=== PATIENT | female | born 1990 | race Hispanic/Latino ===

== ENCOUNTER 2021-09-10 11:48 | Inpatient (IN) | payer MEDICAID, OTHER ==
[2021-09-10 12:24] LABS: Fetal Membranes Rupture RUPTURE DETECTED (No Rupture)
[2021-09-10 12:37] VITALS: BMI 24.7
[2021-09-10] MEDS ORDERED: Ondansetron PF 4 MG/2 ML Vial IVP PRN ×2 (13:26→23:23)
[2021-09-10] MEDS ORDERED: hydrALAZINE 20 MG/ML VIAL SLOW IVP PRN ×2 (13:26→23:23)
[2021-09-10] MEDS ORDERED: Butorphanol Tartrate 1 MG/ML VIAL SLOW IVP PRN (13:26)
[2021-09-10] MEDS ORDERED: Methylergonovine 0.2 MG/ML VIAL IM PRN ×2 (13:26→23:23)
[2021-09-10] MEDS ORDERED: Misoprostol 200 MCG TAB PR PRN (13:26)
[2021-09-10] MEDS ORDERED: Ibuprofen 800 MG TAB PO PRN (13:26)
[2021-09-10] MEDS ORDERED: Carboprost 250 MCG/ML AMP IM PRN (13:26)
[2021-09-10] MEDS ORDERED: HYDROcodone/Acetaminophen 5/325 mg Tablet PO PRN ×4 (13:26→23:23)
[2021-09-10] MEDS ORDERED: Diphenoxylate HCl/Atropine Tablet PO PRN (13:26)
[2021-09-10] MEDS ORDERED: Acetaminophen 500 MG TAB PO PRN (13:26)
[2021-09-10] MEDS ORDERED: Lidocaine 1% (PF) 30 ML VIAL SC PRN (13:26)
[2021-09-10] MEDS ORDERED: Promethazine HCl 25 MG/ML VIAL IM PRN (13:26)
[2021-09-10] MEDS ORDERED: Lactated Ringer's 1,000 ML IV SCH (13:30)
[2021-09-10] MEDS ORDERED: NS w/ Oxytocin 30 units 500 ML IV SCH (13:30)
[2021-09-10 13:55] LABS: Hemoglobin 13.5 g/dL (12.0-15.5); Mean Corpuscular HGB CONC 33.7 g/dL (32.0-36.0); Mean Corpuscular Hemoglobin 31.9 pg (27.0-33.0); Mean Corpuscular Volume 94.8 fl (81.6-98.3); Mean Platelet Volume 12.4 fl (7.4-10.4); Platelet Count 107 10x3/uL (150-450); RBC Distribution Width 13.2 % (11.5-14.5); Red Blood Cell (RBC) Count 4.23 10x6/uL (3.90-5.03); White Blood Cell (WBC) Count 9.8 10x3/uL (3.5-10.5)
[2021-09-10 14:34] LABS: Hep B Surf Ag Non-Reactive S/CO (NonReactive); Syphilis Antibody Nonreactive (Nonreactive); Syphilis Antibody Index 0.04 S/CO (<1.00 Non-Reactive)
[2021-09-10 14:53] LABS: HBSAg Index 0.21 S/CO (0-0.99)
[2021-09-10] MEDS: NS w/ Oxytocin 30 units 500 ML IV SCH ×2 (21:39→22:05)
[2021-09-10] MEDS ORDERED: Bisacodyl 10 MG SUPP PR PRN (23:23)
[2021-09-10] MEDS ORDERED: Misoprostol 200 MCG TAB VAG PRN (23:23)
[2021-09-10] MEDS ORDERED: Boostrix 0.5 ML (Tdap) VIAL IM ONE (23:23)
[2021-09-10] MEDS ORDERED: Benzocaine-Menthol 82.5 ML CAN TOP PRN (23:23)
[2021-09-10] MEDS ORDERED: NS w/ Oxytocin 30 units 500 ML IV PRN (23:23)
[2021-09-10] MEDS ORDERED: Milk Of Magnesia 30 ML UDCUP PO PRN (23:23)
[2021-09-11 04:32] LABS: #Monocytes 0.8 10x3/uL (0.0-1.1); #Neutrophils 12.2 10x3/uL (1.5-8.4); %Basophils 0.1 % (0.0-2.0); %Eosinophils 0.1 % (0.0-6.0); %Lymphocytes 8.4 % (18.0-47.0); %Monocytes 5.4 % (0.0-10.0); %Neutrophils 85.6 % (40.0-75.0); Hemoglobin 12.5 g/dL (12.0-15.5); Mean Corpuscular HGB CONC 34.2 g/dL (32.0-36.0); Mean Corpuscular Hemoglobin 31.9 pg (27.0-33.0); Mean Corpuscular Volume 93.4 fl (81.6-98.3); Mean Platelet Volume 12.3 fl (7.4-10.4); Platelet Count 92 10x3/uL (150-450); RBC Distribution Width 13.2 % (11.5-14.5); Red Blood Cell (RBC) Count 3.92 10x6/uL (3.90-5.03); White Blood Cell (WBC) Count 14.2 10x3/uL (3.5-10.5)
[2021-09-11] MEDS: Ibuprofen 800 MG TAB PO SCH ×2 (05:40→14:52)
[2021-09-11] MEDS: Docusate Calcium (SURFAK) 240 MG CAP PO SCH ×2 (08:46→21:17)
[2021-09-11] MEDS: Ferrous Sulfate 325 MG TAB PO SCH ×2 (08:47→18:34)
[2021-09-11] MEDS ORDERED: Lanolin Ointment 7 GM TUBE TOP PRN (09:03)
[2021-09-12] MEDS: Ibuprofen 800 MG TAB PO SCH ×2 (03:28→11:27)
[2021-09-12 04:32] LABS: Hemoglobin 10.9 g/dL (12.0-15.5); Mean Corpuscular HGB CONC 32.5 g/dL (32.0-36.0); Mean Corpuscular Hemoglobin 31.2 pg (27.0-33.0); Mean Platelet Volume 12.1 fl (7.4-10.4); Platelet Count 87 10x3/uL (150-450); RBC Distribution Width 13.4 % (11.5-14.5); Red Blood Cell (RBC) Count 3.49 10x6/uL (3.90-5.03); White Blood Cell (WBC) Count 7.5 10x3/uL (3.5-10.5)
[2021-09-12] MEDS: Ferrous Sulfate 325 MG TAB PO SCH (08:26)
[2021-09-12] MEDS: Docusate Calcium (SURFAK) 240 MG CAP PO SCH (08:29)
[2021-09-12 08:32] VITALS: BP 91/58; TEMP 97.6
== END 2021-09-12 11:50 | disposition home or self-care (01) | DRG 806 ==
LOC: CSHLD/OP 11:48 → CSHLD 13:09 → CSHPP 09-11
PROVIDERS: ADMIT Obstetrics & Gynecology; ATTEND Obstetrics & Gynecology
PROC: 10E0XZZ Delivery of Products of Conception, External Approach (ICD-10-PCS; principal; 2021-09-10)
PROC: 0KQM0ZZ Repair Perineum Muscle, Open Approach (ICD-10-PCS; 2021-09-10)
PROC: 10907ZC Drainage of Amniotic Fluid, Therapeutic from Products of Conception, Via Natural or Artificial Opening (ICD-10-PCS; 2021-09-10)
DX: O69.81X0 Labor and delivery complicated by cord around neck, without compression, not applicable or unspecified (principal); O99.12 Other diseases of the blood and blood-forming organs and certain disorders involving the immune mechanism complicating childbirth; Z37.0 Single live birth; Z3A.37 37 weeks gestation of pregnancy; O70.1 Second degree perineal laceration during delivery; D69.6 Thrombocytopenia, unspecified
CPT/HCPCS: 36415; 84112; 85025; 85027; 86780; 86850; 86900; 86901; 87340; 99285; J2001; J2590